=== PATIENT | female | born 1990 | race African-American/Black ===

== ENCOUNTER 2023-12-23 21:30 | Inpatient (IN) | payer OTHER ==
[2023-12-24 00:08] VITALS: BMI 32.9
[2023-12-24 02:59] LABS: BASO % 0.3 % (0-2.0); EOS % 0.9 % (0-4.5); HEMATOCRIT 36.3 % (32.4-45.2); HEMOGLOBIN 12.4 GM/dL (10.7-15.3); LYMPH % 21.3 % (8-40); MCH 31.1 pg (25.7-33.7); MEAN CELL VOLUME 91.3 fl (80-96); MEAN PLT VOLUME 8.2 fl (7.5-11.1); MONO % 7.7 % (3.8-10.2); NEUT % 69.8 % (42.8-82.8); PLATELET COUNT 294 10^3/uL (134-434); RBC 3.98 M/mm3 (3.60-5.2); RDW 13.5 % (11.6-15.6); WHITE BLOOD COUNT 6.3 K/mm3 (4.0-10.0)
[2023-12-24 03:08] LABS: PROTHROMBIN TIME (PATIENT) 11.3 SEC (9.7-13.0)
[2023-12-24 03:45] LABS: POTASSIUM 3.9 mmol/L (3.5-5.1)
[2023-12-24 03:46] LABS: CALCIUM 9.1 mg/dL (8.5-10.1)
[2023-12-24 03:47] LABS: BLOOD UREA NITROGEN 6.3 mg/dL (7-18)
[2023-12-24 03:50] LABS: CREATININE 0.6 mg/dL (0.55-1.3)
[2023-12-24 04:17] LABS: HIV INTERPRETATION NEGATIVE (NEGATIVE)
[2023-12-24] MEDS: ELECTROLYTE-148 SOLN 1,000 ML IV SCH (09:15)
[2023-12-24] MEDS: OXYTOCIN 30 UNITS in 0.9% NS 30 UNIT/500 ML INFUS.BAG IVPB SCH (09:15)
[2023-12-24] MEDS: DINOPROSTONE 10 MG VAGINAL SUPPOSITORY VG ONE (19:15)
[2023-12-24] MEDS: MISOPROSTOL 25 MCG TABLET (COMPOUNDED BY PHARMACY) BUC ONE (19:17)
[2023-12-24] MEDS ORDERED: BUTORPHANOL TARTRATE 2 MG/ML VIAL ONE (19:30)
[2023-12-24] MEDS ORDERED: PROMETHAZINE HCL 25 MG/1 ML VIAL ONE (19:30)
[2023-12-24] MEDS: PROMETHAZINE HCL 25 MG/1 ML VIAL IVPB ONE (19:40)
[2023-12-24] MEDS: BUTORPHANOL TARTRATE 2 MG/ML VIAL IVPB ONE (19:40)
[2023-12-24] MEDS ORDERED: FENTANYL/BUPIVACAINE/NS/PF - PCEA - 50 ML DISP.SYRIN EP ONE (22:17)
[2023-12-24] MEDS: FENTANYL/BUPIVACAINE/NS/PF - PCEA - 50 ML DISP.SYRIN EP SCH (22:45)
[2023-12-24] MEDS ORDERED: NALOXONE HCL 0.4 MG/ML VIAL IVPUSH PRN (23:45)
[2023-12-25] MEDS ORDERED: OXYTOCIN 20 UNITS in 0.9% NS 20 UNIT/1,000 ML INFUS.BAG IV ONE (03:07)
[2023-12-25] MEDS ORDERED: FENTANYL/BUPIVACAINE/NS/PF - PCEA - 50 ML DISP.SYRIN EP ONE (05:23)
[2023-12-25] MEDS: OXYTOCIN 20 UNITS in 0.9% NS 20 UNIT/1,000 ML INFUS.BAG IV SCH (05:57)
[2023-12-25 06:48] LABS: CORD BASE EXCESS -6.5 mmol/L (0-2); CORD HCO3 18.6 mmHg (20-29); CORD PCO2 36.2 mmHg (30-78); CORD pH 7.329 (7.14-7.44)
[2023-12-25] MEDS ORDERED: oxyCODONE HCL 5 MG TABLET PO PRN (06:52)
[2023-12-25] MEDS ORDERED: WITCH HAZEL 50% (TUCKS) 40 PAD/JAR PAD TP PRN (06:52)
[2023-12-25] MEDS ORDERED: METHYLERGONOVINE MALEATE 0.2 MG/1 ML AMP IM PRN (06:52)
[2023-12-25] MEDS ORDERED: BENZOCAINE 20% 57 GM BOTTLE TP PRN (06:52)
[2023-12-25] MEDS ORDERED: BENZOCAINE 28 GM HEMORRHOIDAL OINTMENT TP PRN (06:52)
[2023-12-25] MEDS ORDERED: ACETAMINOPHEN 325 MG TABLET (FP) PO PRN (06:52)
[2023-12-25] MEDS: PRENATAL VITAMINS W/ FOLIC ACID TABLET (FP) PO SCH (11:05)
[2023-12-25] MEDS: IBUPROFEN 600 MG TABLET (FP) PO PRN (11:50)
[2023-12-26 02:11] VITALS: RESP 18
[2023-12-26 08:31] LABS: BASO % 0.1 % (0-2.0); EOS % 0.8 % (0-4.5); HEMATOCRIT 31.6 % (32.4-45.2); HEMOGLOBIN 10.7 GM/dL (10.7-15.3); LYMPH % 12.6 % (8-40); MCH 30.8 pg (25.7-33.7); MCHC 33.8 g/dl (32.0-36.0); MEAN CELL VOLUME 91.2 fl (80-96); MEAN PLT VOLUME 7.7 fl (7.5-11.1); MONO % 7.9 % (3.8-10.2); NEUT % 78.6 % (42.8-82.8); PLATELET COUNT 230 10^3/uL (134-434); RBC 3.47 M/mm3 (3.60-5.2); RDW 13.5 % (11.6-15.6); WHITE BLOOD COUNT 12.6 K/mm3 (4.0-10.0)
[2023-12-26] MEDS: FLU VACCINE (FLULAVAL) PF 45 MCG/0.5 ML SYRINGE 2024-2025 IM ONE (10:17)
[2023-12-26] MEDS: SENNOSIDES/DOCUSATE COMBO (SENNA PLUS) TABLET (UD) PO PRN (21:17)
[2023-12-27] MEDS: BISACODYL 10 MG SUPP.RECT RC PRN (09:14)
[2023-12-27 11:26] VITALS: BP 123/75; PULSE 71; TEMP 98.6
== END 2023-12-27 14:55 | disposition home or self-care (01) | DRG 560 ==
LOC: JLDR 21:30 → J3W 12-25 10:30
PROVIDERS: ADMIT Obstetrics & Gynecology; ATTEND Obstetrics & Gynecology
PROC: 10E0XZZ Delivery of Products of Conception, External Approach (ICD-10-PCS; principal; 2023-12-25)
PROC: 0KQM0ZZ Repair Perineum Muscle, Open Approach (ICD-10-PCS; 2023-12-25)
DX: O48.0 Post-term pregnancy (principal); Z3A.41 41 weeks gestation of pregnancy; O70.1 Second degree perineal laceration during delivery; Z37.0 Single live birth
CPT/HCPCS: 36415; 36600; 59409; 80048; 82803; 85025; 85610; 85730; 86780; 86850; 86900; 86901; 87389; 90656; G0008